=== PATIENT | male | born 1995 | race Caucasian/White ===

== ENCOUNTER 2019-12-24 12:37 | Emergency (ER) | payer SELFPAY ==
[2019-12-24] MEDS ORDERED: Albuterol/Ipratropium 3.0-0.5 MG/3 ML Neb Soln NEB ONE (13:27)
--- NOTE | 2019-12-24 13:32 | EDM.PDOC ---
ED HPI GENERAL MEDICAL PROBLEM - General Chief Complaint: Respiratory Problem Stated Complaint: HARD TIME BREATHING Time Seen by Provider: 12/24/19 12:43 Source of Information: Reports: Patient History Limitations: Reports: No Limitations - History of Present Illness INITIAL COMMENTS - FREE TEXT/NARRATIVE: HISTORY AND PHYSICAL: History of present illness: Patient is a 24-year-old male who presents to the ED today with concern of feeling like he is having a hard time breathing over the past 1 month. Patient states initially he thought it was related to the fact that he was smoking but states he stopped smoking completely including inhaling anything over the past 2 months. Patient states over the course of the last 1 month his symptoms have worsened and are worse at night and early in the morning. Patient states that he will cough and feel like he cannot take a deep breath in. Patient denies any health history. Patient denies any other symptoms or concerns. Patient denies fever, chills, chest pain. Denies headache, neck stiff ness, change in vision, syncope, or near syncope. Denies nausea, vomiting, abdominal pain, diarrhea, constipation, or dysuria. Has not noted any blood in urine or stool. Patient has been eating and drinking appropriately. Review of systems: As per history of present illness and below otherwise all systems reviewed and negative. Past medical history: As per history of present illness and as reviewed below otherwise noncontributory. Surgical history: As per history of present illness and as reviewed below otherwise noncontributory. Social history: See social history for further information Family history: As per history of present illness and as reviewed below otherwise noncontributory. Physical exam: General: Patient is alert, oriented, and in no acute distress. Patient sitting comfortably on exam table. HEENT: Atraumatic, normocephalic, pupils equal and reactive bilaterally, negative for conjunctival pallor or scleral icterus, mucous membranes moist, TMs normal bilaterally, throat clear, neck supple, nontender, trachea midline. No drooling or trismus noted. No meningeal signs. No hot potato voice noted. Bilateral nasal congestion. Lungs: Clear to auscultation but diminished bilaterally, breath sounds equal bilaterally, chest nontender. Heart: S1S2, regular rate and rhythm without overt murmur Abdomen: Soft, nondistended, nontender. Negative for masses or hepatosplenomegaly. Negative for costovertebral tenderness. Pelvis: Stable nontender. Genitourinary: Deferred. Rectal: Deferred. Skin: Intact, warm, dry. No lesions or rashes noted. Extremities: Atraumatic, negative for cords or calf pain. Neurovascular unremarkable. Neuro: Awake, alert, oriented. Cranial nerves II through XII unremarkable. Cerebellum unremarkable. Motor and sensory unremarkable throughout. Exam nonfocal. Notes: O2 on RA 99%. Patient breathing comfortably and in no acute distress. Discussed importance for follow-up with a primary care provider. Voices understanding and is agreeable to plan of care. Denies any further questions or concerns at this time. Diagnostics: CBC, CMP, UA, ddimer, Influenza, CXR, EKG, Trop Therapeutics: Duoneb Prescription: Medrol dose pack, Proair inhaler Impression: Cough Dyspnea Plan: 1. Take medication as prescribed. You can alternate ibuprofen and Tylenol as directed for pain and discomfort. 2. Follow-up with a primary care provider as discussed. Return to the ED as needed and as discussed. Definitive disposition and diagnosis as appropriate pending reevaluation and review of above. "lung pain" Pain Score (Numeric/FACES): 10 - Related Data Allergies Allergy/AdvReac Type Severity Reaction Status Date / Time No Known Allergies Allergy Verified 12/24/19 13:03 Home Meds: Home Meds Albuterol Sulfate [Proair Hfa] 8.5 gm IH Q8HR PRN #1 hfa.[email or web address] 12/24/19 [Rx] methylPREDNISolone [Medrol] 4 mg PO ASDIRECTED #1 dosepk 12/24/19 [Rx] Past Medical History - Past Health History Medical/Surgical History: Denies Medical/Surgical History - Infectious Disease History Infectious Disease History: Reports: Chicken Pox Social & Family History - Family History Family Medical History: Noncontributory - Tobacco Use Smoking Status *Q: Former Smoker Used Tobacco, but Quit: Yes Month/Year Tobacco Last Used: 11/2019 - Recreational Drug Use Recreational Drug Use: No ED ROS GENERAL - Review of Systems Review Of Systems: Comprehensive ROS is negative, except as noted in HPI. ED EXAM, GENERAL - Physical Exam Exam: See Below (see dictation) Course - Vital Signs Last Recorded V/S: Last Vital Signs Temp 97.1 F 12/24/19 13:03 Pulse 76 12/24/19 14:45 Resp 18 12/24/19 14:45 BP 129/69 12/24/19 14:45 Pulse Ox 98 12/24/19 14:45 - Orders/Labs/Meds Orders: Active Orders 24 hr Category Date Time Status EKG 12 Lead [EKG Documentation Completion] [RC] STAT Care 12/24/19 13:07 Active RT Aerosol Therapy [RC] ASDIRECTED Care 12/24/19 13:27 Active Isolation [COMM] Routine Oth 12/24/19 13:32 Active Labs: Laboratory Tests 12/24/19 12/24/19 12/24/19 Range/Units 14:00 14:00 14:00 WBC 6.66 (4.0-11.0) K/uL RBC 5.12 (4.50-5.90) M/uL Hgb 16.1 (13.0-17.0) g/dL Hct 47.3 (38.0-50.0) % MCV 92.4 (80.0-98.0) fL MCH 31.4 (27.0-32.0) pg MCHC 34.0 (31.0-37.0) g/dL RDW Std Deviation 44.3 (28.0-62.0) fl RDW Coeff of Nick 13 (11.0-15.0) % Plt Count 215 (150-400) K/uL MPV 10.50 (7.40-12.00) fL Neut % (Auto) 47.1 L (48.0-80.0) % Lymph % (Auto) 31.7 (16.0-40.0) % Rowan % (Auto) 10.5 (0.0-15.0) % Eos % (Auto) 10.1 H (0.0-7.0) % Baso % (Auto) 0.6 (0.0-1.5) % Neut # (Auto) 3.1 (1.4-5.7) K/uL Lymph # (Auto) 2.1 (0.6-2.4) K/uL Rowan # (Auto) 0.7 (0.0-0.8) K/uL Eos # (Auto) 0.7 (0.0-0.7) K/uL Baso # (Auto) 0.0 (0.0-0.1) K/uL Nucleated RBC % 0.0 /100WBC Nucleated RBCs # 0 K/uL D-Dimer, Quantitative 0.33 (0.0-0.50) mg/L FEU Sodium 143 (136-148) mmol/L Potassium 4.2 (3.5-5.1) mmol/L Chloride 107 (98-107) mmol/L Carbon Dioxide 30.3 (21.0-32.0) mmol/L BUN 18 (7.0-18.0) mg/dL Creatinine 1.0 (0.8-1.3) mg/dL Est Cr Clr Drug Dosing 115.87 mL/min Estimated GFR (MDRD) > 60.0 ml/min Glucose 74 (74-106) mg/dL Calcium 9.1 (8.5-10.1) mg/dL Total Bilirubin 0.4 (0.2-1.0) mg/dL AST 27 (15-37) IU/L ALT 57 (14-63) IU/L Alkaline Phosphatase 82 (46-116) U/L Troponin I < 0.050 (0.000-0.056) ng/mL Total Protein 6.9 (6.4-8.2) g/dL Albumin 3.8 (3.4-5.0) g/dL Globulin 3.1 (2.6-4.0) g/dL Albumin/Globulin Ratio 1.2 (0.9-1.6) Lipase 193 (73-393) U/L Meds: Medications Discontinued Medications Generic Name Dose Route Start Last Admin Trade Name Freq PRN Reason Stop Dose Admin Albuterol/Ipratropium 3 ml 12/24/19 13:27 12/24/19 13:37 Duoneb 3.0-0.5 Mg/3 Ml NEB 12/24/19 13:28 3 ml ONETIME ONE Administration Methylprednisolone Sodium Succinate 125 mg 12/24/19 14:18 12/24/19 14:43 Solu-Medrol IM 12/24/19 14:19 125 mg ONETIME ONE Administration Departure - Departure Time of Disposition: 14:54 Disposition: Home, Self-Care 01 Clinical Impression: Cough Dyspnea Qualifiers: Dyspnea type: unspecified Qualified Code(s): R06.00 - Dyspnea, unspecified - Discharge Information Prescriptions: Albuterol Sulfate [Proair Hfa] 8.5 gm IH Q8HR PRN #1 hfa.aer.ad PRN Reason: Cough methylPREDNISolone [Medrol] 4 mg PO ASDIRECTED #1 dosepk Referrals: PCP,None [Primary Care Provider] - Forms: ED Department Discharge Additional Instructions: The following information is given to patients seen in the emergency department who are being discharged to home. This information is to outline your options for follow-up care. We provide all patients seen in our emergency department with a follow-up referral. The need for follow-up, as well as the timing and circumstances, are variable depending upon the specifics of your emergency department visit. If you don't have a primary care physician on staff, we will provide you with a referral. We always advise you to contact your personal physician following an emergency department visit to inform them of the circumstance of the visit and for follow-up with them and/or the need for any referrals to a consulting specialist. The emergency department will also refer you to a specialist when appropriate. This referral assures that you have the opportunity for follow-up care with a specialist. All of these measure are taken in an effort to provide you with optimal care, which includes your follow-up. Under all circumstances we always encourage you to contact your private physician who remains a resource for coordinating your care. When calling for follow-up care, please make the office aware that this follow-up is from your recent emergency room visit. If for any reason you are refused follow-up, please contact the [facility] Emergency Department at and asked to speak to the emergency department charge nurse. [facility] [address] [place] [id number] [id number] 1. Take medication as prescribed. You can alternate ibuprofen and Tylenol as directed for pain and discomfort. 2. Follow-up with a primary care provider as discussed. Return to the ED as needed and as discussed. Sepsis Event Note - Evaluation Sepsis Screening Result: No Definite Risk - Focused Exam Vital Signs: Vital Signs Temp Pulse Resp BP Pulse Ox 12/24/19 14:45 76 18 129/69 98 12/24/19 13:03 97.1 F 73 20 132/75 99 Date Exam was Performed: 12/24/19 Time Exam was Performed: 14:52 - My Orders Last 24 Hours: My Active Orders 12/24/19 13:07 EKG 12 Lead [EKG Documentation Completion] [RC] STAT 12/24/19 13:27 RT Aerosol Therapy [RC] ASDIRECTED 12/24/19 13:32 Isolation [COMM] Routine - Assessment/Plan Last 24 Hours: My Active Orders 12/24/19 13:07 EKG 12 Lead [EKG Documentation Completion] [RC] STAT 12/24/19 13:27 RT Aerosol Therapy [RC] ASDIRECTED 12/24/19 13:32 Isolation [COMM] Routine
[2019-12-24] MEDS ORDERED: methylPREDNISolone Sodium Succinate 125 MG/2 ML SDV IM ONE (14:18)
--- NOTE | 2019-12-24 14:18 | CR ---
Chest: 2 views of the chest were obtained. Comparison: No prior chest imaging. Heart size and mediastinum are normal. Lungs are clear with no acute parenchymal change. Bony structures appear unremarkable. Impression: 1. Nothing acute is seen on 2 view chest x-ray. Diagnostic code #1 This report was dictated in MDT
[2019-12-24 14:44] LABS: BLOOD UREA NITROGEN,BUN 18 mg/dL (7.0-18.0); CARBON DIOXIDE,CO2 30.3 mmol/L (21.0-32.0); CHLORIDE,CL 107 mmol/L (98-107); GLUCOSE RANDOM 74 mg/dL (74-106); LIPASE 193 U/L (73-393); POTASSIUM,K 4.2 mmol/L (3.5-5.1); SODIUM,NA 143 mmol/L (136-148)
== END 2019-12-24 15:19 | disposition home or self-care (01) ==
LOC: MW.ED 12:37
DX: R06.00 Dyspnea, unspecified (principal); R05 Cough; Z87.891 Personal history of nicotine dependence
CPT/HCPCS: 36415; 71046; 80053; 83690; 84484; 85025; 85379; 87804; 93005; 94640; 96372; 99285; J2930; J7620-GY